=== PATIENT | male | born 1970 | race Hispanic/Latino ===

== ENCOUNTER 2018-04-13 09:06 | Day surgery (SDC) | payer BC ==
[2018-04-13] MEDS ORDERED: TORADOL IV PRN ×2 (09:59→13:40)
[2018-04-13] MEDS ORDERED: ZOFRAN IV PRN (09:59)
[2018-04-13] MEDS ORDERED: PERCOCET 5/325 PO PRN (09:59)
[2018-04-13] MEDS ORDERED: DILAUDID IV PRN (09:59)
--- NOTE | 2018-04-13 09:59 | Anesthesia Day of Surgery ---
Anesthesia Day of Surgery - Day of Surgery Patient Examined: Yes Patient H&P Reviewed: Yes Patient is NPO: Yes
--- NOTE | 2018-04-13 09:59 | Anesthesia Consultation ---
Anesthesia Consult and Med Hx Date of service: 04/13/18 - Airway Anesthetic Teeth Evaluation: Good ROM Head & Neck: Adequate Mental/Hyoid Distance: Adequate Mallampati Class: Class I Intubation Access Assessment: Good - Pulmonary Exam CTA: Yes - Cardiac Exam Cardiac Exam: RRR - Pre-Operative Health Status ASA Pre-Surgery Classification: ASA2 Proposed Anesthetic Plan: General - Pulmonary Hx Smoking: No (smokeless tobacco - 1 can every 2 days) - Cardiovascular System Hx Hypertension: Yes (took lisinopril today. BP WNL) - Central Nervous System Hx Neuromuscular Disorder: No - Gastrointestinal Hx Ulcer: No - Endocrine Hx Renal Disease: No - Other Systems Hx Alcohol Use: Yes (shot of burbon per day) Hx Substance Use: No
[2018-04-13] MEDS ORDERED: LACTATED RINGERS 1,000 ML IV SCH (10:00)
[2018-04-13] MEDS ORDERED: VERSED IV NR (10:00)
[2018-04-13] MEDS ORDERED: NEURONTIN PO NR (10:00)
[2018-04-13] MEDS ORDERED: TYLENOL PO PRN (10:00)
[2018-04-13] MEDS ORDERED: ANCEF/STERILE WATER 2 GM/20 ML IV NR (10:00)
[2018-04-13] MEDS ORDERED: SUBLIMAZE ONE (11:03)
[2018-04-13] MEDS ORDERED: DIPRIVAN 10 MG/ML IV ONE (11:03)
[2018-04-13] MEDS ORDERED: MARCAINE-EPI 0.5%-1:200,000 INFILTRATI ONE ×2 (11:03→13:09)
[2018-04-13] MEDS ORDERED: HEPARIN SUB-Q NR (11:45)
[2018-04-13] MEDS ORDERED: ePHEDrine 50 MG/5 ML-0.9% NACL IV ONE (12:35)
[2018-04-13] MEDS ORDERED: XYLOCAINE MPF 2% ONE (13:05)
[2018-04-13] MEDS ORDERED: ZEMURON IV ONE (13:05)
[2018-04-13] MEDS ORDERED: BLOXIVERZ ONE (13:09)
[2018-04-13] MEDS ORDERED: ZOFRAN ONE (13:09)
[2018-04-13] MEDS ORDERED: ROBINUL ONE (13:09)
[2018-04-13] MEDS ORDERED: DILAUDID ONE (13:14)
[2018-04-13] MEDS ORDERED: NACL 0.9% IR ONE (13:14)
--- NOTE | 2018-04-13 14:20 | Post Operative Note ---
Pre-op diagnosis: LIH Post-op diagnosis: same (Direct) Procedure: Open repair of direct LIH Description of procedure: Pt was placed supine on the OR table. GETA was administered. An indwelling boswell catheter was inserted. Lower abdomen, genitalia and left upper thigh were prepped and draped. Skin and SQ tissue at the proposed incision were infiltrated with 8 ml of 0.5% Marcaine with epinephrine. A curvilinear incision was made in the left suprapubic crease. SQ tissue was transected with the Bovie. Hemostasis was obtained with the Bovie. External oblique aponeurosis was incised over the inguinal canal. Ilioinguinal nerve was identified and was preserved throughout the procedure. The cord was dissected circumferentially at the level of the symphysis and a Briscoe drain passed about the cord. The cord was skeletonized and a large lipoma was found within the cord. This was excised and was passed off the table as specimen. There was no evidence of an indirect LIH. The area of Hasselbach's triangle was somewhat weak and it was decided that this would be strengthened via a Bassini repair. The conjoined tendon was developed medially. The conjoined tendon was then approximated to the shelving portion of Poupart's ligament with seven interrupted sutures of 0-Ethibond. Wound was irrigated with warm saline. The external oblique aponeurosis was reapproximated with a running suture of 3-0 Vicryl. Skin was approximated with a running, subcuticular suture of 4-0 Monocryl. The wound was then dressed with glue, a sterile 4 X 4 and Tegaderm. Pt tolerated the procedure well. He was extubated in the OR and was taken to PACU in stable condition. Anesthesia: GETA Surgeon: BISHOP VASQUEZ Estimated blood loss: minimal Pathology: list (Cord lipoma) Specimen disposition: to lab Condition: stable Disposition: PACU
[2018-04-13 14:54] VITALS: BP 104/65
== END 2018-04-13 15:24 | disposition home or self-care (01) ==
LOC: OR 09:06
PROVIDERS: ATTEND Surgery
DX: K40.90 Unilateral inguinal hernia, without obstruction or gangrene, not specified as recurrent (principal); D17.6 Benign lipomatous neoplasm of spermatic cord; I10 Essential (primary) hypertension; F17.290 Nicotine dependence, other tobacco product, uncomplicated; Z79.899 Other long term (current) drug therapy
CPT/HCPCS: 49507; 88304; J0690; J1170; J1644; J1885; J2250; J2405; J2704; J2710; J3010; J7120